=== PATIENT | male | born 1960 | race Two or more races ===

== ENCOUNTER 2017-06-11 14:25 | Emergency (ER) | payer OTHER, MEDICAID ==
[~2017-06-11] VITALS: Ht 167.6 cm; Wt 77.1 kg
[2017-06-11 14:25] VITALS: BP_SYST 151
[2017-06-11 15:30] VITALS: BP_SYST 132
== END 2017-06-11 15:30 ==
LOC: SED 14:25
DX: Z02.89 Encounter for other administrative examinations (principal); F10.129 Alcohol abuse with intoxication, unspecified
CPT/HCPCS: 99283